=== PATIENT | male | born 1945 | race Two or more races ===

== ENCOUNTER → 2017-03-21 | Day surgery (SDC) | payer OTHER ==
[~2017-03-21] VITALS: Ht 188 cm; Wt 79.4 kg
[~2017-03-21] MED LIST: ALD50 PO; ALLO100T PO; DIGO125T82 PO; FENTANYL CITRATE/PF 50MCG/ML 2ML VIAL ONE; FURO40TA5 PO; GLIM4TAB2 PO; LIDOCAINE HCL 2% JELLY 5ML ONE; METF10002 PO; MIDAZOLAM HCL 5 MG/5 ML VIAL ONE; SITA100T6 PO; SOTA80TA PO; TETRACAINE/BENZOCAINE/BUTAMBEN 20 GM SPRAY MM ONE; eliquis PO
== END | disposition home or self-care (01) ==
LOC: CARD 11:16
PROVIDERS: ATTEND Specialist
DX: I48.92 Unspecified atrial flutter (principal); E11.9 Type 2 diabetes mellitus without complications; E78.5 Hyperlipidemia, unspecified; I10 Essential (primary) hypertension; M10.9 Gout, unspecified; Z79.01 Long term (current) use of anticoagulants; Z79.84 Long term (current) use of oral hypoglycemic drugs; Z79.899 Other long term (current) drug therapy
CPT/HCPCS: 92960; 93005; 93307; 99152; 99153; J2250; J3010